=== PATIENT | male | born 1995 | race African-American/Black ===

== ENCOUNTER 2017-12-20 14:03 | Emergency (ER) | payer SELFPAY ==
[~2017-12-20] VITALS: Ht 177.8 cm; Wt 94.0 kg
[2017-12-20] MEDS ORDERED: LIDOCAINE HCL 1% 20ML VIAL (Pyxis) INJ MC ONE (16:45)
[2017-12-20] MEDS ORDERED: TETANUS, DIPHTHERIA, PERTUSSIS VAC/PF 0.5ML (>7YR OLD) IM ONE (16:45)
[2017-12-20] MEDS ORDERED: BACITRACIN ZINC OINT UDPKT TOP ONE (16:45)
[2017-12-20 18:39] VITALS: BP 117/64
== END 2017-12-20 18:44 | disposition home or self-care (01) ==
LOC: ER 14:03
DX: L03.011 Cellulitis of right finger (principal)
CPT/HCPCS: 90471; 90715; 99283; J3490

== ENCOUNTER 2017-12-22 12:40 | Emergency (ER) | payer SELFPAY ==
[~2017-12-22] VITALS: Ht 157.5 cm; Wt 84.0 kg
[2017-12-22 13:11] VITALS: BP 105/52
== END 2017-12-22 14:07 | disposition home or self-care (01) ==
LOC: ER 14:01
DX: L03.011 Cellulitis of right finger (principal); Z48.00 Encounter for change or removal of nonsurgical wound dressing
CPT/HCPCS: 99281